=== PATIENT | female | born 1995 | race African-American/Black ===

== ENCOUNTER 2018-01-25 15:08 | Emergency (ER) | payer OTHER ==
[~2018-01-25] VITALS: Ht 157.5 cm; Wt 82.6 kg
[2018-01-25] MEDS ORDERED: IBUPROFEN 600600 M1 PO (15:23)
[2018-01-25] MEDS ORDERED: AMOXICILLIN 50500 MG PO (15:23)
[2018-01-25 15:45] VITALS: BP 118/74
== END 2018-01-25 15:46 | disposition home or self-care (01) ==
LOC: M.ERS 15:08
DX: J02.9 Acute pharyngitis, unspecified (principal)